=== PATIENT | male | born 1960 | race Caucasian/White ===

== ENCOUNTER 2019-04-16 06:46 | Emergency (ER) | payer OTHER, MEDICAID, SELFPAY ==
[2019-04-16 06:59] VITALS: BP 93/66; PULSE 63; RESP 14; TEMP 36.7; O2SAT 96; BMI 28.3
--- NOTE | 2019-04-16 06:59 | DI.RAD.S_ITS ---
PROCEDURE: XR CHEST 1V INDICATIONS: chest pain TECHNIQUE: One view of the chest was acquired. COMPARISON: None. FINDINGS: Surgical changes and devices: Sternotomy wires and CABG clips.. Lungs and pleura: Lungs are clear. No pleural effusions or pneumothorax. Mediastinum: Mediastinal contours appear normal. Heart size is normal. Bones and chest wall: Chronic appearing right-sided rib fractures with callus formation. IMPRESSION: No acute disease Dictated by: Sukhdeep Hanson M.D. on 04/16/2019 at 8:31 Approved by: Sukhdeep Hanson M.D. on 04/16/2019 at 8:32
--- NOTE | 2019-04-16 07:13 | ED_ITS ---
HPI - General Adult General Chief complaint: Hypertension Stated complaint: blood pressure has been up since last night Time Seen by Provider: 04/16/19 06:48 Source: patient Mode of arrival: Ambulatory Limitations: no limitations History of Present Illness HPI narrative: The patient is a 58-year-old male who states that time he became dizzy lightheaded getting out of the truck and collapsed to his knees but did no t lose consciousness. He states that last night he took his blood pressure medicine and again this morning before going to work. He states that when he got out of the car he was dizzy and lightheaded. He denied any headache but became very red and flushed. One and half months ago he was sick and had a cough with shortness of breath and pneumonia. Since then the patient has been having periodic night sweats. He denies any chest pain. He admits to smoking cigarettes and drinking alcohol. He denies any fever chills sweats or headache. He has had no nasal drainage sinus congestion or sore throat. He has a chronic smoker's cough on productive of any sputum. He denies any shortness of breath abdominal pain nausea vomiting or diarrhea. He admits to have a coronary artery bypass graft surgery x2 he has borderline COPD denies myocardial infarction admits to congestive heart failure and a TIA as well as hypertension. He has had no did diabetes mellitus. Related Data Home Medications Medication Instructions Recorded Confirmed lisinopril 10 mg PO DAILY 04/16/19 04/16/19 metoprolol tartrate 25 mg PO BID 04/16/19 04/16/19 Review of Systems Review of Systems ROS Unobtainable: All systems reviewed & are unremarkable except as noted in HPI and below Patient History Social History Smoking Status: Current every day smoker Smoking Status: Current every day smoker tobacco type: cigarettes and smokeless tobacco alcohol intake frequency: 0-2 drinks per day Substance Use Type: marijuana Exam Narrative Exam Narrative: PHYSICAL EXAM: CONSTITUTIONAL: Awake, Alert, Oriented, Coherent, Cooperative in NAD. Does not appear toxic or ill. HEAD: AT/NC EENT: PERRL, FROM of eyes, no discharge, no nystagmus No epistaxis or nasal drainage Oral mucosa is moist and pink, posterior pharynx is without erythema or exudate. NECK: Supple, no obvious JVD, Trachea is midline without stridor, no palpable LN or masses. SPINE: No gross deformity, no palpable tenderness of the cervical, thoracic, lumbar or sacral spine. No CVA tenderness. THORAX: No deformity, retractions, chest wall tenderness, subcutaneous air or crepitice. LUNGS: Symmetrical breath sounds with diffuse expiratory wheezes anteriorly and posteriorly. HEART: Normal heart tones, regular rhythm and rate without murmur. ABDOMEN: Soft, non-tender, normal bowel sounds without guarding, rebound, rigidity or palpable mass or organomegaly. EXTREMITIES: No edema, cyanosis, deformity or tenderness. SKIN: No rash, bruising, petechiae or purpura. He has tattoos over his entire body abdomen and chest. NEURO: Awake, alert, oriented, conversive, cranial nerves II-XII are symmetrical and normal, moves all 4 extremities and is ambulatory Initial Vital Signs Initial Vital Signs: Vital Signs Temperature 98.1 F 04/16/19 06:59 Pulse Rate 63 04/16/19 06:59 Respiratory Rate 14 04/16/19 06:59 Blood Pressure 93/66 04/16/19 06:59 Pulse Oximetry 96 04/16/19 06:59 Course Course Course Narrative: 0819: Chest x-ray by my review is negative for any acute pathology. The patient has sternal wires from previous bypass surgery. The patient's initial blood pressure on triage was 93/66. The patient questionably may have over medicated himself. He took his blood pressure last night before going to bed and again this morning when he woke up. 0849 clarification: The patient normally takes his blood pressure in the morning. The patient stated that his blood pressure was high last night for got to take his medications so as soon as he got home from work last night he took his antihypertensive agents. Again he took 1 this morning. His blood pressure was low when he was seen in triage. I believe the patient over medicated himself transiently. He will be administered a L of fluid. He states that he feels much better and will be discharged. He will be given a work excuse for today. Orders Ordered: Discontinued Medications Albuterol/Ipratropium (Duoneb) 3 ml INH NOW ONE Stop: 04/16/19 07:24 Last Admin: 04/16/19 07:39 Dose: 3 ml Documented by: STHOMP Sodium Chloride (Normal Saline 0.9%) 1,000 mls @ 1,000 mls/hr IV BOLUS ONE Stop: 04/16/19 09:21 Last Infusion: 04/16/19 10:17 Dose: 0 mls/hr Documented by: Admin: 04/16/19 08:39 Dose: 1,000 mls/hr Documented by: MIKE Vital Signs Vital signs: Vital Signs - 8 hr 04/16/19 06:59 04/16/19 08:41 Temperature 98.1 F Pulse Rate 63 65 Respiratory Rate 14 16 Blood Pressure 93/66 Pulse Oximetry 96 98 Medical Decision Making Lab Data Result diagrams: 04/16/19 07:05 04/16/19 07:05 Labs: Lab Results 04/16/19 04/16/19 04/16/19 Range/Units 07:05 07:05 07:05 WBC 4.3 L (4.5-11.0) X10^3/uL RBC 4.81 (4.5-5.9) X10^6/uL Hgb 15.0 (13.5-17.5) g/dL Hct 43.6 (41-53) % MCV 90.6 (80-100) fL MCH 31.2 (26-34) PG MCHC 34.5 (30-36) % RDW 15.2 H (11.6-14.8) % Plt Count 163 (150-400) X10^3/uL Neut % (Auto) 54.2 (50-75) % Lymph % (Auto) 30.7 (25-40) % [place] % (Auto) 12.7 (3-14) % Eos % (Auto) 1.5 L (2-4) % Baso % (Auto) 0.9 (0-2) % Neut # (Auto) 2300 (6567-7791) /uL Lymph # (Auto) 1300 (1898-4541) /uL [place] # (Auto) 500 (0-900) /uL Eos # (Auto) 100 (0-450) /uL Baso # (Auto) 0 (0-100) /uL PT 9.5 L (10.1-12.7) SECONDS INR 0.8 L (0.9-1.3) APTT 29 (26.4-36.2) SECONDS Sodium 141 (137-145) mmol/L Potassium 4.4 (3.4-5.1) mmol/L Chloride 104 (98-107) mmol/L Carbon Dioxide 26 (22-32) mmol/L BUN 21 H (9-20) mg/dL Creatinine 1.10 (0.66-1.25) mg/dL Estimated GFR > 60.0 (>60) mL/min BUN/Creatinine Ratio 19.1 (6-22) Glucose 114 H (70-100) mg/dL Calcium 9.1 (8.4-10.2) mg/dL Total Bilirubin 0.3 (0.2-1.3) mg/dL AST 23 (17-59) IU/L ALT 15 (<50) IU/L Alkaline Phosphatase 40 (38-126) U/L Troponin I < 0.012 (0.01-0.034) ng/mL B-Natriuretic Peptide < 100 (<100) Total Protein 7.3 (6.3-8.2) g/dL Albumin 4.4 (3.5-5.0) g/dL Globulin 2.9 (1.7-4.1) g/dL Albumin/Globulin Ratio 1.5 (1.0-2.8) Lipase 77 (23-300) U/L ECG Data Attestation: I personally reviewed and interpreted this ECG as follows: Interpretation: The patient's EKG obtained on April 16 at 6:05 a.m. 9 reveals a sinus rhythm with a ventricular rate at 61. OR interval is normal at 190 milliseconds QRS is normal as is the QTC. The patient has got a normal axis flat T-waves in leads III no acute diagnostic ST segment changes the patient has nonspecific ST segment changes. Discharge Plan Departure Patient Disposition: Home Clinical Impression: Chronic hypertension, Hypotension due to drugs Discharge Date/Time: 04/16/19 10:18 Instructions: DI for Orthostatic Hypotension, DI for High Blood Pressure Activity Restrictions/Additional Instructions: If you take your medications for hypertension so close like you did yesterday (last night and again this morning) you can develop hypotension and when you stand up from a sitting position or lying down position you can become dizzy lightheaded and collapsed like you did to your knees. I believe that you overmedicated yourself in a short time.. You should take your blood pressure medicines once a day as prescribed and not 2 doses on top of each other. If you develop chest pain worsening shortness of breath worsening dizziness you need to return to the emergency department or follow-up with her primary care physician. Prescriptions: No Action lisinopril 10 mg tablet 10 mg PO DAILY RF: 0 metoprolol tartrate 25 mg tablet 25 mg PO BID RF: 0 Referrals: Brittny Brandt PA-C [Primary Care Provider] - Stand Alone Forms: Work Release Note
[2019-04-16 07:18] LABS: Add Manual Diff / Slide Review NO; Basophils Absolute Auto 0 /uL (0-100); Basophils Percent Auto 0.9 % (0-2); Eosinophils Absolute Auto 100 /uL (0-450); Eosinophils Percent Auto 1.5 % (2-4); Hematocrit 43.6 % (41-53); Lymphocytes Absolute Auto 1300 /uL (1100-4500); Lymphocytes Percent Auto 30.7 % (25-40); Mean Corpuscular HGB Conc 34.5 % (30-36); Mean Corpuscular Hemoglobin 31.2 PG (26-34); Mean Corpuscular Volume 90.6 fL (80-100); Monocytes Absolute Auto 500 /uL (0-900); Monocytes Percent Auto 12.7 % (3-14); Neutrophils Absolute Auto 2300 /uL (1500-7000); Neutrophils Percent Auto 54.2 % (50-75); Platelet Count 163 X10^3/uL (150-400); Red Blood Cell Count 4.81 X10^6/uL (4.5-5.9); Red Cell Distribution Width 15.2 % (11.6-14.8); White Blood Cell Count 4.3 X10^3/uL (4.5-11.0)
[2019-04-16 07:23] LABS: INR 0.8 (0.9-1.3); Prothrombin Time 9.5 SECONDS (10.1-12.7)
[2019-04-16 07:26] LABS: PTT Partial Thromboplastin Tim 29 SECONDS (26.4-36.2)
[2019-04-16 07:28] LABS: Alanine Aminotransferase 15 IU/L (<50); Albumin 4.4 g/dL (3.5-5.0); Albumin Globulin Ratio 1.5 (1.0-2.8); Alkaline Phosphatase 40 U/L (38-126); Aspartate Aminotransferase 23 IU/L (17-59); BUN Creatinine Ratio 19.1 (6-22); Bilirubin Total 0.3 mg/dL (0.2-1.3); Blood Urea Nitrogen 21 mg/dL (9-20); Calcium 9.1 mg/dL (8.4-10.2); Carbon Dioxide 26 mmol/L (22-32); Chloride 104 mmol/L (98-107); Estimated Glomerular Filt Rate > 60.0 mL/min (>60); Globulin 2.9 g/dL (1.7-4.1); Glucose 114 mg/dL (70-100); HEMOLYSIS 30 (0-50); Lipase 77 U/L (23-300); Potassium 4.4 mmol/L (3.4-5.1); Sodium 141 mmol/L (137-145); Total Protein 7.3 g/dL (6.3-8.2)
[2019-04-16] MEDS: ALBUTEROL/IPRATROPIUM 3 ML AMPUL INH (07:39)
[2019-04-16 07:40] LABS: B Type Natriuretic Peptide < 100 (<100); Troponin I < 0.012 ng/mL (0.01-0.034)
[2019-04-16] MEDS: SODIUM CHLORIDE 0.9% 1,000 ML 1000 ML IV (08:39)
[2019-04-16 08:41] VITALS: PULSE 65; RESP 16; O2SAT 98
[2019-04-16 10:17] VITALS: BP 119/74; PULSE 80; RESP 17; O2SAT 98
== END 2019-04-16 10:18 | disposition home or self-care (01) ==
PROVIDERS: Emergency Medicine; Emergency Provider Emergency Medicine; PCP Physician Assistant
DX: I10 Essential (primary) hypertension (principal); I95.2 Hypotension due to drugs; R07.9 Chest pain, unspecified
CPT/HCPCS: 36415; 71045; 80053; 83690; 83880; 84484; 85025; 85610; 85730; 93005; 94640; 96360; 96361; 99284; 99285

== ENCOUNTER → 2019-04-24 11:25 | Outpatient (CLI) | payer OTHER, MEDICAID, SELFPAY ==
--- NOTE | 2019-04-24 | DI.US.S_ITS ---
PROCEDURE: US CAROTID DOPPLER BI INDICATIONS: BILATERAL NECK BRUITS.RECENT NEAR SYNCOPE TECHNIQUE: Color and pulse Doppler interrogation was performed of both carotid systems, with image documentation and velocity measurements. COMPARISON: None. FINDINGS: Stenosis calculations are based on SRU (Society of Radiologists in Ultrasound) criteria. The flow velocities and the arterial waveforms are normal within both carotid arterial systems. Atherosclerotic plaque is seen on both sides. The estimated degree of internal carotid artery stenosis is less than 50%. Antegrade flow is confirmed within both vertebral arteries. IMPRESSION: No hemodynamically significant stenosis is seen. Atherosclerotic plaque is noted bilaterally. Dictated by: Greg Florez M.D. on 04/24/2019 at 14:27 Approved by: Greg Florez M.D. on 04/24/2019 at 14:31
== END ==
PROVIDERS: PCP Physician Assistant; Referring Provider Family Medicine; Visit Provider Family Medicine
DX: I65.23 Occlusion and stenosis of bilateral carotid arteries (principal); R09.89 Other specified symptoms and signs involving the circulatory and respiratory systems; R55 Syncope and collapse
CPT/HCPCS: 93880

== ENCOUNTER 2023-11-11 12:26 | Emergency (ER) | payer OTHER, MEDICAID, SELFPAY ==
[2023-11-11 12:37] VITALS: BP 149/90; PULSE 95; RESP 16; TEMP 36.6; O2SAT 99; BMI 33.9
--- NOTE | 2023-11-11 12:44 | ED.GENADULT ---
HPI - General Adult General Chief complaint: Fall Stated complaint: fall, head injury, swelling both ankles Time Seen by Provider: 11/11/23 12:44 History of Present Illness HPI narrative: 63-year-old gentleman with a history hypertension, peripheral artery disease, chronic constipation, reflux, stage 3 kidney disease, type 2 diabetes, coronary artery disease and chronic bronchitis who notes that slightly over 36 hours ago he fell asleep sitting in a chair fell down and hit his head. Has a minor abrasion to the right side of his forehead. Initially seemed to feel okay but this morning is bit dizzy and is wondering if he has a concussion comes in for further evaluation. He states that nothing else is hurting. When asked about his past medical history he states that he only intermittently takes his blood pressure medications and aspirin. He does not use his inhalers he is continuing to smoke and he does continue to drink. He states ?at 63 I am getting old and I believe to good life. Related Data Home Medications Medication Instructions Recorded Confirmed lisinopril 10 mg tablet 10 mg PO DAILY 04/16/19 04/16/19 metoprolol tartrate 25 mg tablet 25 mg PO BID 04/16/19 04/16/19 Review of Systems Review of Systems Narrative: Pertinent positive and negative findings as per HPI Patient History Medical History (Updated 11/11/23 @ 13:55 by Mireya Stovall RN) Alcohol use disorder Coronary artery disease Smoker COPD (chronic obstructive pulmonary disease) Hyperlipidemia Hypertension Social History Smoking Status: Current every day smoker Smoking Status: Current every day smoker tobacco type: cigarettes and smokeless tobacco alcohol intake frequency: 0-2 drinks per day Substance Use Type: marijuana Exam Initial Vital Signs Initial Vital Signs: Vital Signs Temperature 97.8 F 11/11/23 12:37 Pulse Rate 95 H 11/11/23 12:37 Respiratory Rate 16 11/11/23 12:37 Blood Pressure 149/90 H 11/11/23 12:37 Pulse Oximetry 99 11/11/23 12:37 Oxygen Delivery Method Room Air 11/11/23 12:37 General: No acute distress, gravelly voice, minor abrasion healing to the left forehead. HEENT: Moist mucous membranes, normal sclera with reactive pupils, Neck: No midline cervical spine tenderness Respiratory: Lungs with wheeze in all lung [place] worse in the right side Cardiac: Regular rate and rhythm no murmurs no bruits Abdomen: Soft, nontender, good bowel tones, no flank pain Skin: Warm and dry, no rashes, no obvious areas of large contusion aside from the left side of his forehead Neurologic: Grossly neurologically intact with no obvious asymmetries or abnormalities Extremities: No trauma, Psych: Cooperative, appropriate insight and affect Course Vital Signs Vital signs: Vital Signs - 8 hr 11/11/23 12:37 Temperature 97.8 F Pulse Rate 95 H Respiratory Rate 16 Blood Pressure 149/90 H Pulse Oximetry 99 Oxygen Delivery Method Room Air Medical Decision Making MDM Narrative Medical decision making narrative: CC: Dizziness, nausea, fell off a chair and hit his head 36 hours ago Complicating co-morbidities: Alcohol use disorder, continued tobacco abuse, intermittently takes his blood pressure medications and aspirin Data collected from: patient Social determinants of health that may influence the patients condition: Continued lifestyle habits that are detrimental to overall health, medical noncompliance Medical records reviewed: Records from [facility] are reviewed Differential considered: Subdural hematoma, intracranial hemorrhage, viral syndrome, withdrawal syndrome Exam documented above, pertinent findings include: 63-year-old gentleman who believes he is old and seems to accept his ailments and minor complaints. Notes that he has some nausea, bit of dizziness in his head does not feel right. No other complaints. He has significant wheezing that does not seem to bother him. He has not using accessory muscles at this time Imaging studies independently reviewed: CT scan of the head is unremarkable Discussion: Patient chose to leave prior to reviewing results. He did sign out against medical advice. Discharge Plan Departure Patient Disposition: Left Against Medical Advice Clinical Impression: Left against medical advice Prescriptions: No Action lisinopril 10 mg tablet 10 mg PO DAILY metoprolol tartrate 25 mg tablet 25 mg PO BID Referrals: Brittny Brandt PA-C [Primary Care Provider] - Stand Alone Forms: Patient Portal/API, Against Medical Advice
--- NOTE | 2023-11-11 13:00 | DI.CT.S_ITS ---
PROCEDURE: CT HEAD/BRAIN WO CON INDICATIONS: Fall 36 hours ago, at risk for bleeding TECHNIQUE: Noncontrast 4.5 mm thick angled axial sections acquired from the foramen magnum to the vertex, with coronal and sagittal reformats. For radiation dose reduction, the following was used: automated exposure control, adjustment of mA and/or kV according to patient size. COMPARISON: None. FINDINGS: Image quality: Diagnostic. CSF spaces: Basal cisterns are patent. No extra-axial fluid collections. The ventricles are symmetric in size and shape. Brain: No intracranial bleeds or masses. There is cerebral volume loss for age, with resultant ventricular and sulcal prominence. There are periventricular and deep white matter chronic small vessel ischemic changes. There is intracranial internal carotid artery atherosclerosis. Skull and face: Apparent remote injury can be seen involving the calvarium posteriorly and on the left, as on series 3 image 24. Calvarium and visualized facial bones appear intact, without suspicious lesions. Sinuses: Visualized sinuses and mastoids are clear. IMPRESSION: No acute intracranial hemorrhage is seen. No acute intracranial pathology. Apparent remote calvarial injury seen posteriorly and on the left. To the limits of this noncontrast study, no findings of intracranial masses or mass effect can be seen. Dictated by: Gerg Florez M.D. on 11/11/2023 at 12:40 Approved by: Greg Florez M.D. on 11/11/2023 at 12:41
--- NOTE | 2023-11-11 13:52 | PC.NURSE ---
Pt stepped out of his ED pt room, stating, I'm leaving. Pt requested to use phone to call for his ride. This RN informed pt that he still needs to be told his CT results and his treatment stills need to be completed. Pt reports he does not want to wait any longer and began to continue to walk out of ED. Pt has been provided with risks of leaving prior to completion of treatment, AMA form signed and acknowledged by patient.
== END 2023-11-11 13:54 | disposition left against medical advice (07) ==
PROVIDERS: Emergency Provider Emergency Medicine; PCP Physician Assistant
DX: S09.90XA Unspecified injury of head, initial encounter (principal); S00.81XA Abrasion of other part of head, initial encounter; W07.XXXA Fall from chair, initial encounter
CPT/HCPCS: 70450; 99281; 99284